=== PATIENT | female | born 1960 | race Caucasian/White ===

== ENCOUNTER 2016-05-06 14:58 | Emergency (ER) | payer BC ==
[2016-05-06 16:44] VITALS: BP 113/57
[2016-05-06] MEDS ORDERED: Acyclovir* 200 MG CAP PO ONE (18:09)
--- NOTE | 2016-05-06 18:55 | UC ---
Skin Complaint HPI - HPI Summary HPI Summary: FOUR DAYS BURNING BLISTERING RASH ON CENTRAL CHEST SEEMS TO BE SPREADING, FEELS LIKE LAST TIME SHE HAD SHINGLES. LAST NIGHT HAD FEVER AND DIARRHEA. - History of Current Complaint Chief Complaint: UCSkin Time Seen by Provider: 05/06/16 17:29 Stated Complaint: RASH Hx Obtained From: Patient Hx Last Menstrual Period: menopausal Onset/Duration: Gradual Onset, Lasting Days, Still Present Skin Exposure Onset/Duration: Days Ago Timing: Constant Onset Severity: Mild Current Severity: Moderate Location: Discrete - CENTRAL CHEST Character: Painful Aggravating: Touch Alleviating: Nothing Associated Signs & Symptoms: Positive: Rash - ERRETHEMATOUS VESICULAR RASH ON STERNUM, Tenderness Related History: Possible Reaction to: Insect, Possible Reaction to: Environmental Exposure - Allergy/Home Medications Allergies/Adverse Reactions: Allergies Allergy/AdvReac Type Severity Reaction Status Date / Time Ampicillin Allergy Intermediate itchy Verified 07/08/14 09:51 Review of Systems Constitutional: Fever Skin: Rash Eyes: Negative ENT: Negative Respiratory: Negative Cardiovascular: Negative Gastrointestinal: Negative Genitourinary: Negative Motor: Negative Neurovascular: Negative Musculoskeletal: Negative Neurological: Negative Psychological: Negative All Other Systems Reviewed And Are Negative: Yes PMH/Surg Hx/FS Hx/Imm Hx Previously Healthy: Yes Endocrine History Of: Denies: Diabetes, Thyroid Disease Cardiovascular History Of: Reports: Cardiac Disorders - mitral valve prolapse Denies: Hypertension, Myocardial Infarction Respiratory History Of: Denies: COPD, Asthma GI/ History Of: Denies: Ulcer - Surgical History Surgical History: Yes Surgery Procedure, Year, and Place: bunion surgery. D&C's. wisdom teeth removal. ear tubes - Family History Known Family History: Positive: Hypertension - Social History Occupation: Employed Full-time Lives: With Family Alcohol Use: Occasionally Substance Use Type: None Smoking Status (MU): Never Smoked Tobacco - Immunization History Most Recent Tetanus Shot: Unknown Physical Exam Triage Information Reviewed: Yes Appearance: Well-Appearing, No Pain Distress, Well-Nourished Vital Signs: Initial Vital Signs Temp 97.9 F 05/06/16 16:37 Pulse 58 05/06/16 16:37 Resp 16 05/06/16 16:37 BP 113/57 05/06/16 16:37 Pulse Ox 100 05/06/16 16:37 Vital Signs Reviewed: Yes Eye Exam: Normal ENT Exam: Normal ENT: Positive: Normal ENT inspection, Hearing grossly normal, Pharynx normal, TMs normal Dental Exam: Normal Neck exam: Normal Neck: Positive: Supple, Nontender, No Lymphadenopathy. Negative: Nuchal Rigidity, Tenderness @ Respiratory Exam: Normal Respiratory: Positive: Chest non-tender, Lungs clear, Normal breath sounds, No respiratory distress, No accessory muscle use Cardiovascular Exam: Normal Cardiovascular: Positive: RRR, No Murmur, Pulses Normal, Brisk Capillary Refill Abdominal Exam: Normal Abdomen Description: Positive: Nontender, No Organomegaly Musculoskeletal Exam: Normal Musculoskeletal: Positive: Strength Intact, ROM Intact Neurological Exam: Normal Neurological: Positive: Alert, Muscle Tone Normal Psychological Exam: Normal Skin: Positive: rashes - TENDER ERRETHEMATROUS VESICULAR RASH ON STERNUM Course/Dx - Course Course Of Treatment: DUE TO CLINICAL PRESENTATION OF ERRETHEMATOUS TENDER VESICULAR RASH, I PRESCRIBED ANTIVIRAL THERAPY. THIS LOOKS LIKE SHINGLES EXCEPT THE FACT THAT IT IS CENTRALLY PRESENT ON THE STERNUM, THEREFORE I ALSO PRESCRIBED STEROID OINTMENT TO COVER DERMATITIS POSSIBLITY. - Differential Diagnoses - Skin Complaint Differential Diagnoses: Cellulitis, Contact Dermatitis, Eczema, Impetigo, Local Allergic Reaction, [place], Tinea, Urticaria, Varicella Zoster, Viral Exanthem - Diagnoses Provider Diagnoses: VARICELLA ZOSTER Discharge - Discharge Plan Condition: Stable Disposition: HOME Prescriptions: Acyclovir TAB* [Zovirax TAB*] 800 mg PO QID #56 tab Triamcinolone 0.1% Oint (NF) [Triamcinolone Acetonide] 0.1 % TOPICAL TID #1 oin Patient Education Materials: Shingles (ED) Referrals: [facility]FERR[facility] [Outside] No Primary Care Phys,NOPCP [Primary Care Provider] -
== END 2016-05-06 18:28 | disposition home or self-care (01) ==
LOC: UCEAST 14:58
DX: B02.9 Zoster without complications (principal); I34.1 Nonrheumatic mitral (valve) prolapse
CPT/HCPCS: 87502; 99212; A9270-GY; G0463

== ENCOUNTER 2018-01-04 15:02 | Emergency (ER) | payer BC ==
[2018-01-04 15:45] VITALS: BP 121/56
--- NOTE | 2018-01-04 16:16 | UC ---
Complaint Female HPI - HPI Summary HPI Summary: C/O red area around vagina. H/O BV. C/O possible STI - History Of Current Complaint Chief Complaint: UCGU Stated Complaint: PERSONAL Time Seen by Provider: 01/04/18 15:55 Hx Obtained From: Patient Hx Last Menstrual Period: 2006 Onset/Duration: Lasting Days - 2, Worse Since - onset Timing: Constant Severity Initially: Mild Severity Currently: Moderate Pain Intensity: 5 Character: Burning Aggravating Factor(s): [place] Associated Signs And Symptoms: Positive: Vaginal Discharge. Negative: Fever - Allergies/Home Medications Allergies/Adverse Reactions: Allergies Allergy/AdvReac Type Severity Reaction Status Date / Time ampicillin Allergy Intermediate Itching Verified 01/04/18 15:46 lactose Allergy Diarrhea Verified 01/04/18 15:46 peanut Allergy Itching Verified 01/04/18 15:46 PMH/Surg Hx/FS Hx/Imm Hx Other Cardiovascular History: Mitral valve prolapse - Surgical History Surgical History: Yes Surgery Procedure, Year, and Place: bunion surgery. D&C's. wisdom teeth removal. ear tubes - Family History Known Family History: Positive: Hypertension - Social History Occupation: Employed Full-time Lives: With Family Alcohol Use: Occasionally Substance Use Type: None Smoking Status (MU): Never Smoked Tobacco - Immunization History Most Recent Tetanus Shot: Unknown Review of Systems All Other Systems Reviewed And Are Negative: Yes Genitourinary: Positive: Vaginal/Penile Burning, Vaginal/Penile Discharge Is Patient Immunocompromised?: No Physical Exam Triage Information Reviewed: Yes Appearance: Well-Appearing, No Pain Distress, Well-Nourished Vital Signs: Initial Vital Signs Temp 98.3 F 01/04/18 15:28 Pulse 70 01/04/18 15:28 Resp 18 01/04/18 15:28 BP 121/56 01/04/18 15:28 Pulse Ox 100 01/04/18 15:28 Vital Signs Reviewed: Yes Neck exam: Normal Respiratory Exam: Normal Cardiovascular Exam: Normal Abdomen Description: Positive: Nontender, No Organomegaly, Soft Pelvic Exam: Positive: Discharge - white. Negative: External Exam Normal - erythema at the vaginal introitus Musculoskeletal Exam: Normal Neurological Exam: Normal Psychological Exam: Normal Skin Exam: Normal Complaint Female Dx - Differential Dx/Diagnosis Differential Diagnosis/HQI/PQRI: Ovarian Cyst, Pelvic Inflammatory Disease, Urinary Tract Infection Provider Diagnoses: Acute vaginitis Discharge - Sign-Out/Discharge Documenting (check all that apply): Patient Departure All imaging exams completed and their final reports reviewed: No Studies - Discharge Plan Condition: Stable Disposition: HOME Prescriptions: Fluconazole 150 MG (NF) [Diflucan 150 mg (NF)] 150 mg PO ONCE #1 tab metroNIDAZOLE VAGINAL 0.75%* 1 applic VAGINAL BEDTIME #1 tube Patient Education Materials: Vaginitis (ED), Bacterial Vaginosis (ED), Metronidazole (Into the vagina), Fluconazole (By mouth) Referrals: Linda Escalante MD [Primary Care Provider] - Additional Instructions: You can also try acidophillus/ lactobacillus probiotics into the vagina directly. - Billing Disposition and Condition Condition: STABLE Disposition: Home
== END 2018-01-04 16:45 | disposition home or self-care (01) ==
LOC: UCEAST 15:02
DX: N76.0 Acute vaginitis (principal)
CPT/HCPCS: 87480; 87491; 87510; 87591; 87660; 99212; G0463

== ENCOUNTER 2018-03-31 11:48 | Emergency (ER) | payer BC ==
[2018-03-31 12:00] VITALS: BP 127/70
--- NOTE | 2018-03-31 12:05 | UC ---
Skin Complaint HPI - HPI Summary HPI Summary: 58 y/o female presents to the urgent care c/o a rash in the left side of her chest with itchiness and mild pain for the past 4 days. Pt reports she has Hx of chicken pox and she had a similar rash in the past and she now thinks is shingles. Pt states rash is increasing in size with some vesicles. Pain is mild 3/10. However she has been taking Ibuprofen PO for her left shoulder rotator cuff tendinitis. Pt also c/o she is been having mild frequency and burning on urination since yesterday. He has Hx of recurrent UTI. However in the past 9 months she had similar symptoms and it was BV. She has a mild vaginal discharge , but she thinks it is probably normal. Pt denies fever, pelvic pain, lower back pain, Hx of STD's, SOB, chest pain, OTERO, abdominal pain, N/V/D. - History of Current Complaint Chief Complaint: UCRash Time Seen by Provider: 03/31/18 12:04 Stated Complaint: RASH Hx Obtained From: Patient Hx Last Menstrual Period: 2006 ?: No - Menopausal Onset/Duration: Gradual Onset, Lasting Days - 4 days, Still Present Skin Exposure Onset/Duration: Days Ago - 4 days Timing: Constant Onset Severity: Mild Current Severity: Moderate Pain Intensity: 3 - rash in left side of chest Pain Scale Used: 0-10 Numeric Location: Discrete - left side of chest Character: Pruritus, Redness, Painful - mild Aggravating Factor(s): Touch Alleviating Factor(s): Nothing Associated Signs & Symptoms: Positive: Rash - left side of chest, Tenderness. Negative: Nausea, Vomiting, Numbness, Fever, Chills, Drainage Related History: Other: - chicken pox as a child - Allergy/Home Medications Allergies/Adverse Reactions: Allergies Allergy/AdvReac Type Severity Reaction Status Date / Time ampicillin Allergy Intermediate Itching Verified 03/31/18 12:00 lactose Allergy Diarrhea Verified 03/31/18 12:00 peanut Allergy Itching Verified 03/31/18 12:00 Home Medications: Home Medications Ibuprofen 600 mg PO ONCE PRN 03/31/18 [History Confirmed 03/31/18] PMH/Surg Hx/FS Hx/Imm Hx Previously Healthy: Yes - Pt denies PMHX - Surgical History Surgical History: Yes Surgery Procedure, Year, and Place: bunion surgery. D&C's. wisdom teeth removal. ear tubes - Family History Known Family History: Positive: Cardiac Disease, Hypertension - Social History Occupation: Employed Full-time Lives: With Family Alcohol Use: Occasionally Substance Use Type: None Smoking Status (MU): Never Smoked Tobacco - Immunization History Most Recent Tetanus Shot: Unknown Review of Systems All Other Systems Reviewed And Are Negative: Yes Constitutional: Positive: Other - hot flashes Skin: Positive: Rash - left side of her chest with itchiness and mild pain Eyes: Positive: Negative ENT: Positive: Negative Respiratory: Positive: Negative Cardiovascular: Positive: Negative Gastrointestinal: Positive: Negative Genitourinary: Positive: Dysuria, Frequency, Urgency Motor: Positive: Negative Neurovascular: Positive: Negative Musculoskeletal: Positive: Negative Neurological: Positive: Negative Psychological: Positive: Negative Is Patient Immunocompromised?: No Physical Exam - Summary Physical Exam Summary: Vital Signs Reviewed: Yes General: well appearing, well nourished in no acute obese female sitting in the examining table w/o apparent pain distress, Eye Exam: Normal Eyes: Positive: Conjunctiva Clear - PERRLA< EOMI, fundi grossly normal ENT: Positive: Normal ENT inspection, Hearing grossly normal, Pharynx normal, TMs normal Neck: Positive: Supple, Nontender, No Lymphadenopathy Respiratory: Positive: Chest non-tender, Lungs clear, Normal breath sounds, No respiratory distress Cardiovascular: Positive: RRR, No Murmur, Pulses Normal, Brisk Capillary Refill Abdomen Description: Positive: Nontender, No Organomegaly, Soft. Negative: CVA Tenderness (R), CVA Tenderness (L) Bowel Sounds: Positive: Present Pelvic: Pt declined pelvic exam Musculoskeletal: Positive: Strength Intact, ROM Intact, No Edema Neurological: Positive: Alert, Muscle Tone Normal Psychological Exam: Normal Skin: Positive: Positive mild erythematous maculopapular eruption, some papule with clear vesicles. located in the left side of the chest in a dermatomal distribution mild tenderness to palpation, no swelling observed. Triage Information Reviewed: Yes Vital Signs: Initial Vital Signs Temp 98.2 F 03/31/18 11:54 Pulse 64 03/31/18 11:54 Resp 18 03/31/18 11:54 BP 127/70 03/31/18 11:54 Pulse Ox 99 03/31/18 11:54 Course/Dx - Course Course Of Treatment: 58 y/o female presents to the urgent care c/o a rash in the left side of her chest with itchiness and mild pain for the past 4 days. Pt reports she has Hx of chicken pox and she had a similar rash in the past and she now thinks is shingles. Pt states rash is increasing in size with some vesicles. Pain is mild 3/10. However she has been taking Ibuprofen PO for her left shoulder rotator cuff tendinitis. Pt also c/o she is been having mild frequency and burning on urination since yesterday. He has Hx of recurrent UTI. Hoever in the past 9 months she had similar symptoms and it was BV. She has a mild vaginal discharge, but she thinks it is probably normal. Pt denies fever, pelvic pain, lower back pain, Hx of STD's, SOB, chest pain, OTERO, abdominal pain, N/V/D. Hx obtained. Pt w/ possible herpes zoster on the left side of chest on examination. UA: +leukoesteraces: trace. by looking at previous urine cultures and vaginal swab for the past 9 months urine cultures have been negative and only positive BV. Pt explained these results and Pt will be treated prophylactically for BV since she declined pelvic exam . However urine sent for culture. Pt will be notified of any abnormal result. Pt Rx Metrogel vagianl cream and Valtrex PO as directed below. 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 Pt understood and agreed with plan of care. - Differential Diagnoses - Skin Complaint Differential Diagnoses: Abscess, Cellulitis, Contact Dermatitis, Impetigo, Local Allergic Reaction, MRSA, Poison [place]sa, Poison [place], Urticaria, Varicella Zoster - Diagnoses Provider Diagnosis: Varicella zoster, Bacterial vaginosis Discharge - Sign-Out/Discharge Documenting (check all that apply): Patient Departure - D/C home All imaging exams completed and their final reports reviewed: No Studies - Discharge Plan Condition: Stable Disposition: HOME Prescriptions: metroNIDAZOLE VAGINAL 0.75%* 1 applic VAGINAL BEDTIME #1 promise ValACYclovir (*) [Valtrex 1 GM(*)] 1 gm PO TID #21 tab Patient Education Materials: Bacterial Vaginosis (ED), Shingles (ED) Referrals: Linad Escalante MD [Primary Care Provider] - 3 Days Additional Instructions: 1-Please Take Valtrex PO as directed to alleviate rash. Avoid exposure to women. 2-Continue taking Ibuprofen PO q6-8hrs after meals to alleviate pain. 3- Please apply Metronidazol vaginal cream as directed to alleviate vaginal discharge 4-Urine sent for culture if any abnormality, you will be notified for further treatment. 5-If symptoms do not improve or worsen please f/u with your PCP in 3 days or return to the urgent care for further evaluation and treatment. - Billing Disposition and Condition Condition: STABLE Disposition: Home
== END 2018-03-31 13:09 | disposition home or self-care (01) ==
LOC: UCEAST 11:48
DX: B01.89 Other varicella complications (principal); B02.8 Zoster with other complications; N76.0 Acute vaginitis; Z91.010 Allergy to peanuts; Z88.0 Allergy status to penicillin; Z91.011 Allergy to milk products; Z87.440 Personal history of urinary (tract) infections
CPT/HCPCS: 81003; 87086; 99212; G0463

== ENCOUNTER 2018-05-07 15:17 | Emergency (ER) | payer BC ==
[2018-05-07 15:32] VITALS: BP 122/67
--- NOTE | 2018-05-07 16:22 | UC ---
Throat Pain/Nasal Pankaj HPI - HPI Summary HPI Summary: 58-year-old female presents with onset of general malaise, sore throat, nasal congestion, clear nasal discharge, and an occasional dry nonproductive cough. States her daughter was diagnosed with the flu one week ago. She is also reporting one-week history of dysuria, frequency, and urgency. Reports some mild nausea this morning it is since resolved. Denies fevers, chills, ear pain , dysphagia, chest pain, shortness of breath, abdominal pain, vomiting, diarrhea , hematuria, or vaginal discharge. 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: 5 - Allergies/Home Medications Allergies/Adverse Reactions: Allergies Allergy/AdvReac Type Severity Reaction Status Date / Time ampicillin Allergy Intermediate Itching Verified 05/07/18 15:33 lactose Allergy Diarrhea Verified 05/07/18 15:33 peanut Allergy Itching Verified 05/07/18 15:33 Home Medications: Home Medications Ascorbic Acid TAB* [Vitamin C TAB*] 1,000 mg PO DAILY 05/07/18 [History Confirmed 05/07/18] Mv-Mn/Folic Acid/Calcium/Vit K [Women's 50 Plus Multivit Tab] 1 each PO DAILY [History Confirmed 05/07/18] PMH/Surg Hx/FS Hx/Imm Hx Previously Healthy: Yes - Denies significant PMH - Surgical History Surgical History: Yes Surgery Procedure, Year, and Place: bunion surgery. D&C's. wisdom teeth removal. ear tubes - Family History Known Family History: Positive: Cardiac Disease, Hypertension - Social History Occupation: Employed Full-time Lives: With Family Alcohol Use: Occasionally Substance Use Type: None Smoking Status (MU): Never Smoked Tobacco - Immunization History Most Recent Tetanus Shot: Unknown Review of Systems All Other Systems Reviewed And Are Negative: Yes Constitutional: Positive: Fatigue. Negative: Fever, Chills Skin: Negative: Rash Eyes: Negative: Drainage, Eye Redness ENT: Positive: Sore Throat, Nasal Discharge, Sinus Congestion. Negative: Ear Ache, Sinus Pain/Tenderness Respiratory: Positive: Cough. Negative: Shortness Of Breath Cardiovascular: Negative: Palpitations, Chest Pain Gastrointestinal: Positive: Nausea. Negative: Abdominal Pain, Vomiting, Diarrhea Genitourinary: Positive: Dysuria, Frequency, Urgency, Vaginal/Penile Discharge. Negative: Hematuria, Abnormal Bleeding Musculoskeletal: Positive: Negative Neurological: Positive: Negative Is Patient Immunocompromised?: No Physical Exam - Summary Physical Exam Summary: GENERAL APPEARANCE: Well developed, well nourished, alert and cooperative, and appears to be in no acute distress. EYES: Conjunctiva clear. No drainage. Vision is grossly intact. EARS: External auditory canals and tympanic membranes clear, hearing grossly intact. NOSE: Mild nasal congestion with clear nasal discharge. THROAT: Mild pharyngeal erythema. No tonsilar inflammation, swelling, exudate, or lesions. Uvula midline. Oral cavity normal. Teeth and gingiva in good general condition. NECK: Neck supple, non-tender without lymphadenopathy. CARDIAC: Normal S1 and S2. No S3, S4 or murmurs. Rhythm is regular. There is no peripheral edema, cyanosis or pallor. Extremities are warm and well perfused. Capillary refill is less than 2 seconds. Peripheral pulses intact. LUNGS: Clear to auscultation without rales, rhonchi, wheezing or diminished breath sounds. Cough not observed. ABDOMEN: Positive bowel sounds. Soft, nondistended, nontender. No guarding or rebound. No masses or hepatosplenomegally. No CVA tenderness. MUSKULOSKELETAL: ROM intact to all extremities. No joint erythema or tenderness. Normal muscular development. Normal gait. SKIN: Skin normal color, texture and turgor with no lesions or eruptions. Triage Information Reviewed: Yes Vital Signs: Initial Vital Signs Temp 97.7 F 05/07/18 15:25 Pulse 69 05/07/18 15:25 Resp 16 05/07/18 15:25 BP 122/67 05/07/18 15:25 Pulse Ox 95 05/07/18 15:25 Vital Signs Reviewed: Yes Throat Pain/Nasal Course/Dx - Course Course Of Treatment: 58-year-old female presents with onset of general malaise, sore throat, nasal congestion, clear nasal discharge, and an occasional dry nonproductive cough. States her daughter was diagnosed with the flu one week ago. She is also reporting one-week history of dysuria, frequency, and urgency. Reports some mild nausea this morning it is since resolved. Denies fevers, chills, ear pain , dysphagia, chest pain, shortness of breath, abdominal pain, vomiting, diarrhea , hematuria, or vaginal discharge. Afebrile. Vital signs stable. Exam reveals an older adult female in no acute distress with mild nasal congestion, mild pharyngeal erythema without tonsillar swelling or exudate, no cervical lymphadenopathy, clear bilateral breath sounds, soft nontender abdomen, no CVA tenderness, and otherwise unremarkable exam. Rapid strep test was negative. [id number] urinalysis showed 2+ leukocyte esterase and trace protein. With her recent flu exposure and symptoms were treated for a presumptive flu without testing. Discussed risks and benefits of starting Tamiflu with the patient and she is choosing to not start at this time. Recommending symptomatic treatment for a viral upper respiratory infection, we'll start her on Macrobid 1 tablet twice a day 5 days with a urinary tract infection as well as provide her with Pyridium 100 mg 3 times a day 2 days to help with the urinary discomfort. She is to follow-up with her primary care provider in 5 days if symptoms do not improve. Anticipatory guidance and warning symptoms were reviewed with the patient. Verbalizes understanding and agrees with plan of care. - Differential Dx/Diagnosis Differential Diagnosis/HQI/PQRI: Pharyngitis, Tonsillitis, URI, Other - UTI Provider Diagnosis: Viral URI, UTI (urinary tract infection) Discharge - Sign-Out/Discharge Documenting (check all that apply): Patient Departure All imaging exams completed and their final reports reviewed: No Studies - Discharge Plan Condition: Stable Disposition: HOME Prescriptions: Nitrofurantoin Monohyd/M-Cryst [Macrobid 100 mg Capsule] 100 mg PO BID #10 cap Phenazopyridine TAB* [Pyridium 100 mg TAB*] 100 mg PO TID #6 tab Patient Education Materials: Urinary Tract Infection in Women (ED), Upper Respiratory Infection (ED) Referrals: Linda Escalante MD [Primary Care Provider] - 5 Days (If no improvement in symptoms.) Additional Instructions: Your rapid strep test in the clinic today was negative. Your history and exam are consistent with a viral upper respiratory infection which could include the flu considering your recent exposure. Viral infections do not respond to antibiotics and are limited to the treatment of symptoms. Viral infections typically run their course in 7-10 days. Drink plenty of fluids to avoid dehydration especially if you are running any fever. Use an over the counter decongestant such as Sudafed according to directions for nasal congestion. Take over the counter acetaminophen (Tylenol) or ibuprofen (Advil, Motrin) according to directions as needed for pain or fever. Use salt water gargles several times a day if you have a sore throat. You may also use Chloraseptic spray or Cepacol lonzenges according to directions which contain a numbing medication and can provide some temporary relief from your sore throat. Use on over the counter cough suppressant such as Robitussin DM as needed for cough. Your urine test in the clinic today is suggestive of a urinary tract infection. We will start you on an antibiotic to treat for the infection. We will also send a urine culture today to see what bacteria grow out and make sure the antibiotic you were prescribed is appropriate to treat the infection. It will take 48-72 hours to get these results. We will contact you if there is any change in your treatment plan. Start Macrobid 1 tab twice a day for 5 days. Take Pyridium 1 tablet every 8 hours for next 2 days to help with the discomfort. This medication will turn your urine an orange color. Drink plenty of fluids. Follow up with your primary care provider in 5 days if symptoms persist. Seek immediate medical attention in the emergency room if you develop fever greater than 100.5 F, you are unable to swallow, develop drooling, difficuty breathing, have severe abdominal pain, persistent vomiting, or any worsening of symptoms. - Billing Disposition and Condition Condition: STABLE Disposition: Home
--- NOTE | 2018-05-09 15:27 | UC ---
- Progress Note Progress Note: + E coli sensitive to Macrobid no change lyssa 05/09/18 Course/Dx - Diagnoses Provider Diagnoses: Viral URI, UTI (urinary tract infection) Discharge - Sign-Out/Discharge Documenting (check all that apply): Post-Discharge Follow Up All imaging exams completed and their final reports reviewed: No Studies - Discharge Plan Condition: Stable Disposition: HOME Prescriptions: Nitrofurantoin Monohyd/M-Cryst [Macrobid 100 mg Capsule] 100 mg PO BID #10 cap Phenazopyridine TAB* [Pyridium 100 mg TAB*] 100 mg PO TID #6 tab Patient Education Materials: Urinary Tract Infection in Women (ED), Upper Respiratory Infection (ED) Referrals: Linda Escalante MD [Primary Care Provider] - 5 Days (If no improvement in symptoms.) Additional Instructions: Your rapid strep test in the clinic today was negative. Your history and exam are consistent with a viral upper respiratory infection which could include the flu considering your recent exposure. Viral infections do not respond to antibiotics and are limited to the treatment of symptoms. Viral infections typically run their course in 7-10 days. Drink plenty of fluids to avoid dehydration especially if you are running any fever. Use an over the counter decongestant such as Sudafed according to directions for nasal congestion. Take over the counter acetaminophen (Tylenol) or ibuprofen (Advil, Motrin) according to directions as needed for pain or fever. Use salt water gargles several times a day if you have a sore throat. You may also use Chloraseptic spray or Cepacol lonzenges according to directions which contain a numbing medication and can provide some temporary relief from your sore throat. Use on over the counter cough suppressant such as Robitussin DM as needed for cough. Your urine test in the clinic today is suggestive of a urinary tract infection. We will start you on an antibiotic to treat for the infection. We will also send a urine culture today to see what bacteria grow out and make sure the antibiotic you were prescribed is appropriate to treat the infection. It will take 48-72 hours to get these results. We will contact you if there is any change in your treatment plan. Start Macrobid 1 tab twice a day for 5 days. Take Pyridium 1 tablet every 8 hours for next 2 days to help with the discomfort. This medication will turn your urine an orange color. Drink plenty of fluids. Follow up with your primary care provider in 5 days if symptoms persist. Seek immediate medical attention in the emergency room if you develop fever greater than 100.5 F, you are unable to swallow, develop drooling, difficuty breathing, have severe abdominal pain, persistent vomiting, or any worsening of symptoms. - Billing Disposition and Condition Condition: STABLE Disposition: Home
== END 2018-05-07 17:08 | disposition home or self-care (01) ==
LOC: UCEAST 15:17
DX: J06.9 Acute upper respiratory infection, unspecified (principal); N39.0 Urinary tract infection, site not specified; Z91.010 Allergy to peanuts; Z88.1 Allergy status to other antibiotic agents; Z91.011 Allergy to milk products
CPT/HCPCS: 81003; 87077; 87086; 87186; 87651; 99212; G0463

== ENCOUNTER 2018-05-18 17:07 | Emergency (ER) | payer BC ==
[2018-05-18 17:34] VITALS: BP 118/72
[2018-05-18] MEDS ORDERED: Albuterol/Ipratropium NEB.SOL* Albuterol 2.5 MG/Ipratropium 0.5 MG 3 ML INH ONE (17:42)
--- NOTE | 2018-05-18 17:47 | UC ---
Complaint Female HPI - HPI Summary HPI Summary: She recently finished a course of Macrobid for a urinary tract infection. She states she feels like the UTI improved but did not completely go away. She has had cold symptoms and a cough over the past week. She states her cough is somewhat tight. Last week she had some wheezing. She has no history of asthma. Today she is concerned because she has had vaginal itching with mild whitish discharge. She denies any fever or chills. 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 Associated Signs And Symptoms: Positive: Negative - Allergies/Home Medications Allergies/Adverse Reactions: Allergies Allergy/AdvReac Type Severity Reaction Status Date / Time ampicillin Allergy Intermediate Itching Verified 05/18/18 17:34 lactose Allergy Diarrhea Verified 05/18/18 17:34 peanut Allergy Itching Verified 05/18/18 17:34 PMH/Surg Hx/FS Hx/Imm Hx Previously Healthy: Yes - Surgical History Surgical History: Yes Surgery Procedure, Year, and Place: bunion surgery. D&C's. wisdom teeth removal. ear tubes - Family History Known Family History: Positive: Cardiac Disease, Hypertension - Social History Lives: With Family Alcohol Use: Rare Substance Use Type: None Smoking Status (MU): Never Smoked Tobacco - Immunization History Most Recent Tetanus Shot: Unknown Review of Systems All Other Systems Reviewed And Are Negative: Yes Respiratory: Positive: Cough - Tight cough is productive at times of yellowish sputum and other times clear sputum.. Genitourinary: Positive: Dysuria - Mild burning on urination., Vaginal/Penile Itching - Vaginal itching following a course of Macrobid is minimal white discharge. Is Patient Immunocompromised?: No Physical Exam Triage Information Reviewed: Yes Appearance: Well-Appearing, No Pain Distress, Well-Nourished Vital Signs: Initial Vital Signs Temp 98 F 05/18/18 17:27 Pulse 53 05/18/18 17:27 Resp 14 05/18/18 17:27 BP 118/72 03/31/19 17:27 Pulse Ox 100 05/18/18 17:27 Vital Signs Reviewed: Yes Eye Exam: Normal ENT Exam: Normal Neck exam: Normal Respiratory Exam: Normal Respiratory: Positive: Lungs clear, Normal breath sounds, No respiratory distress, No accessory muscle use, Respiratory distress, Other: - Tight cough, no distress. Cardiovascular Exam: Normal Abdominal Exam: Normal Abdomen Description: Positive: Nontender, No Organomegaly, Soft Bowel Sounds: Positive: Present Musculoskeletal Exam: Normal Neurological Exam: Normal Complaint Female Dx - Course Course Of Treatment: Patient has been comfortable here. We did obtain a urine specimen. I believe at this point her symptoms are more consistent with a vaginal yeast infections and she just finished a course of antibiotics. DuoNeb treatment was given for her tight cough improved her aeration. She stated she was feeling better following that treatment. Her urine will be sent for culture. I'm going to treat her with Diflucan here and then repeat in 1 week from now if she continues to have any symptoms of a yeast infection. 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 I did review teaching of use of the albuterol inhaler. - Differential Dx/Diagnosis Provider Diagnosis: Bronchitis, Yeast infection Discharge - Sign-Out/Discharge Documenting (check all that apply): Patient Departure All imaging exams completed and their final reports reviewed: Yes - Discharge Plan Condition: Good Disposition: HOME Prescriptions: Albuterol HFA INHALER* [Ventolin HFA Inhaler*] 2 puff INH Q4H PRN 5 Days #1 mdi PRN Reason: Wheezing Fluconazole 150 MG TAB* [Diflucan 150 MG TAB*] 150 mg PO UC ONCE #1 tablet Patient Education Materials: Yeast Infection (ED), Acute Bronchitis (ED) Referrals: Linda Escalante MD [Primary Care Provider] - Additional Instructions: Increase fluids. Use your albuterol inhaler 2 puffs every 4-6 hours as needed for tight cough or wheezing. You may repeat the Diflucan in 1 week from now if you have continued symptoms, however if no improvement you may want to follow- up with your LIQUID CHLORINE OPERATOR provider. Follow up with your primary care provider if he start running a fever, having a productive cough or worsening symptoms. - Billing Disposition and Condition Condition: GOOD Disposition: Home
[2018-05-18] MEDS ORDERED: Fluconazole 150 MG TAB PO ONE ×2 (18:10→18:16)
--- NOTE | 2018-05-20 16:22 | UC ---
- Progress Note Progress Note: 05/20/2018 Urine culture final report: no growth No change Vanessa Adler PA-C Course/Dx - Diagnoses Provider Diagnoses: Bronchitis, Yeast infection Discharge - Sign-Out/Discharge Documenting (check all that apply): Post-Discharge Follow Up All imaging exams completed and their final reports reviewed: Yes - Discharge Plan Condition: Good Disposition: HOME Prescriptions: Albuterol HFA INHALER* [Ventolin HFA Inhaler*] 2 puff INH Q4H PRN 5 Days #1 mdi PRN Reason: Wheezing Fluconazole 150 MG TAB* [Diflucan 150 MG TAB*] 150 mg PO UC ONCE #1 tablet Fluconazole 150 MG TAB* [Diflucan 150 MG TAB*] 150 mg PO DAILY 1 Days #1 tablet Patient Education Materials: Acute Bronchitis (ED), Yeast Infection (ED) Referrals: Linda Escalante MD [Primary Care Provider] - Additional Instructions: Increase fluids. Use your albuterol inhaler 2 puffs every 4-6 hours as needed for tight cough or wheezing. 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 Follow up with your primary care provider if he start running a fever, having a productive cough or worsening symptoms. - Billing Disposition and Condition Condition: GOOD Disposition: Home
== END 2018-05-18 18:35 | disposition home or self-care (01) ==
LOC: UCEAST 17:07
DX: J40 Bronchitis, not specified as acute or chronic (principal); B37.49 Other urogenital candidiasis; Z88.1 Allergy status to other antibiotic agents; Z91.011 Allergy to milk products; Z91.010 Allergy to peanuts
CPT/HCPCS: 71046; 81003; 87086; 99212; A9270-GY; G0463

== ENCOUNTER 2018-08-14 13:06 | Emergency (ER) | payer BC ==
[2018-08-14 13:28] VITALS: BP 102/58
--- NOTE | 2018-08-14 14:07 | UC ---
UC General HPI - HPI Summary HPI Summary: [place] a hard bump on left side of labia last night - noticed swelling and that it was painful. Concern that she may have scratched it during the night. No history of this in in the past. She does have a history of recurrent UTI's. She often has recurrent dysuria and incontinence which she also has. Some vaginal itching. No abnormal discharge. No fevers. No N/V. No back pain. Saw a urogynecologist in the past in [place] and had work up including ultrasounds and that was unremarkable. She is concerned she is still having issues. 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 D&C's. wisdom teeth removal. ear tubes - Family History Known Family History: Positive: Cardiac Disease, Hypertension - Social History Alcohol Use: Rare Substance Use Type: None Smoking Status (MU): Never Smoked Tobacco - Immunization History Most Recent Tetanus Shot: Unknown Review of Systems All Other Systems Reviewed And Are Negative: Yes Physical Exam Triage Information Reviewed: Yes Appearance: Well-Appearing Vital Signs: Initial Vital Signs Temp 98 F 08/14/18 13:24 Pulse 66 08/14/18 13:24 Resp 17 08/14/18 13:24 BP 102/58 08/14/18 13:24 Pulse Ox 98 08/14/18 13:24 Vital Signs Reviewed: Yes Abdomen Description: Positive: Other: - no CVA tenderness Pelvic Exam: Positive: Speculum Exam Normal, No Masses, Other - no labial lesions or masses, thick white discharge Course/Dx - Course Course Of Treatment: This is a 58 yr old with dysuria, urinary incontinence and bump on left labia Assessment Labial cyst - resolved U/A : pyuria Vaginal swab sent for gardenella, yeast and trichomonas. Patient did not want to be tested for STIs - same partner for 12 years With her history ureaplasma and mycoplasma culture also sent Plan Start Bactrim as prescribed Recommend diflucan dose times one. If symptoms persist repeat second dose in 48 hours We will contact you if any of your testing comes back positive Recommend follow up with Dr. Oneill We will contact you if you need to change antibiotics - Diagnoses Provider Diagnosis: UTI (urinary tract infection) Discharge - Sign-Out/Discharge Documenting (check all that apply): Patient Departure All imaging exams completed and their final reports reviewed: No Studies - Discharge Plan Condition: Good Disposition: HOME Prescriptions: Fluconazole 150 MG TAB* [Diflucan 150 MG TAB*] 150 mg PO ONCE #2 tablet Sulfamethox/Trimethoprim DS* [Bactrim DS 800/160 TAB*] 1 tab PO BID #6 tab Patient Education Materials: Urinary Tract Infection in Women (ED) Referrals: Linda Escalante MD [Primary Care Provider] - Crow Oneill MD [Medical Doctor] - Additional Instructions: Start Bactrim as prescribed Recommend diflucan dose times one. If symptoms persist repeat second dose in 48 hours We will contact you if any of your testing comes back positive Recommend follow up with Dr. Oneill We will contact you if you need to change antibiotics If cyst-like mass returns - recommend resuming warm compresses and sitz baths - Billing Disposition and Condition Condition: GOOD Disposition: Home
== END 2018-08-14 14:45 | disposition home or self-care (01) ==
LOC: UCEAST 13:06
DX: N39.0 Urinary tract infection, site not specified (principal)
CPT/HCPCS: 81003; 87086; 87480; 87510; 87660; 87798; 99212; G0463

== ENCOUNTER 2023-07-04 08:14 | Observation (INO) ==
[2023-07-03] MEDS: Buffered Lidocaine 1% SYRIN 1 ml INTRADERM ONE ×2 (15:35)
[2023-07-03] MEDS: Acetaminophen IV 1 GM/100ML 1,000 MG/100 ML BAG IV ONE ×2 (15:35→15:50)
[2023-07-03] MEDS: Scopolamine 1 mg/72hr PATCH TRANSDERM ONE ×2 (15:35)
[~2023-07-04 08:14] MED LIST: Metoclopramide 5 MG/ML VIAL (10 mg) IV PRN; NS 0.45% 1000 ml BAG 1,000 ML IV SCH; Naloxone 0.4 mg VIAL 0.4 mg/ml 1 ml VIAL IV PRN; Ondansetron 4 mg VIAL 2 MG/ML 2 ml VIAL IV PRN
[2023-07-04] MEDS ORDERED: fentaNYL 100 mcg/2 ml 50 MCG/ML VIAL ONE ×2 (08:25→14:38)
[2023-07-04] MEDS ORDERED: Midazolam 2 mg/2 ml VIAL 1 mg/ml 2 ml VIAL (2 mg) ONE (08:31)
[2023-07-04] MEDS ORDERED: Propofol 10 MG/ML 20 ML BTL ONE (08:31)
[2023-07-04] MEDS ORDERED: Lidocaine 2% PF 5 ML VIAL ONE (08:31)
[2023-07-04] MEDS ORDERED: Tranexamic Acid 1 GM/100ML BAG 2,000 MG/200 ML BAG IV ONE (08:47)
[2023-07-04] MEDS ORDERED: ceFAZolin 2 GM in NS PREMIX 2 GM/100 ML BAG IVPB ONE (08:48)
[2023-07-04 09:16] LABS: Rapid COVID-19 Molecular Undetected (Undetected)
[2023-07-04] MEDS: Lactated Ringers 1000 ml BAG 1,000 ML IV SCH ×3 (09:19→17:08)
[2023-07-04] MEDS ORDERED: ROPIVACAINE 5 MG/ML 30 ML BTL (0.5%) ONE (10:50)
[2023-07-04] MEDS ORDERED: Rocuronium 50 mg VIAL 10 mg/ml 5 ml VIAL (50 mg) ONE (11:08)
[2023-07-04] MEDS ORDERED: Ondansetron 4 mg VIAL 2 MG/ML 2 ml VIAL ONE (11:56)
[2023-07-04] MEDS ORDERED: Dexamethasone IV 4 MG/ML VIAL 1 ml VIAL ONE (11:56)
[2023-07-04] MEDS ORDERED: HYDROmorphone 0.5 MG/0.5 ML SYRINGE ONE ×2 (12:06→12:21)
[2023-07-04] MEDS ORDERED: Ondansetron ODT 4 mg TAB 4 MG TAB PO PRN ×2 (14:15→15:31)
[2023-07-04] MEDS ORDERED: Morphine 2 MG/ML SYRINGE IV PRN ×2 (14:15→15:31)
[2023-07-04] MEDS ORDERED: Lactulose 30 ml UDC PO PRN ×2 (14:15→15:31)
[2023-07-04] MEDS ORDERED: Calcium Carb (TUMS) 500 mg CHEW TAB PO PRN ×2 (14:15→15:31)
[2023-07-04] MEDS ORDERED: Magnesium Hydroxide LIQ 30 ML UDC PO PRN ×2 (14:15→15:31)
[2023-07-04] MEDS ORDERED: Ondansetron 4 mg VIAL 2 MG/ML 2 ml VIAL IV PRN ×3 (14:15→15:31)
[2023-07-04] MEDS: fentaNYL 100 mcg/2 ml 50 MCG/ML VIAL IV PRN (14:46)
[2023-07-04] MEDS: ceFAZolin 2 GM in NS PREMIX 2 GM/100 ML BAG IVPB SCH ×2 (15:00→21:41)
[2023-07-04] MEDS ORDERED: Metoclopramide 5 MG/ML VIAL (10 mg) IV PRN (15:31)
[2023-07-04] MEDS ORDERED: Naloxone 0.4 mg VIAL 0.4 mg/ml 1 ml VIAL IV PRN (15:33)
[2023-07-04] MEDS ORDERED: NS 0.45% 1000 ml BAG 1,000 ML IV SCH (16:00)
[2023-07-04] MEDS ORDERED: Magnesium Hydroxide LIQ 30 ML UDC PO SCH (21:00)
[2023-07-04] MEDS: Magnesium Hydroxide LIQ 30 ML UDC PO SCH (21:33)
[2023-07-05] MEDS: Vitamin THERAPEUTIC TAB PO SCH (08:30)
[2023-07-05] MEDS ORDERED: Vitamin THERAPEUTIC TAB PO SCH (09:00)
[2023-07-05 10:29] VITALS: BP 98/46
== END 2023-07-05 12:55 | disposition home or self-care (01) ==
LOC: INTOOBSV 08:14 → AA 08:14 → SSU 14:15 → UNDODISIN 15:27
PROVIDERS: ADMIT Orthopaedic Surgery Adult Reconstructive Orthopaedic Surgery; ATTEND Orthopaedic Surgery Adult Reconstructive Orthopaedic Surgery